=== PATIENT | female | born 1975 | race Caucasian/White ===

== ENCOUNTER 2024-01-07 09:35 | Emergency (ER) | payer OTHER, SELFPAY ==
[2024-01-07 09:48] VITALS: BP 120/81; PULSE 80; RESP 18; TEMP 36.4; O2SAT 99
--- NOTE | 2024-01-07 10:15 | ED.GENADULT ---
HPI - General Adult General Chief complaint: Upper Respiratory Infection Stated complaint: Sinus Problem Source: patient Mode of arrival: ambulatory Limitations: no limitations History of Present Illness HPI narrative: Patient presents for evaluation of sinus symptoms for last 10 days. Symptoms include sinus congestion and thick yellow drainage. She also reports a sensation in her ears that she is under water. No fever, chills, nausea, vomiting, diarrhea, cough, shortness of breath. No recent sick contacts to her knowledge. She has been taking Sudafed but symptoms persist. She does not smoke Related Data Allergies Allergy/AdvReac Type Severity Reaction Status Date / Time No Known Allergies Allergy Verified 01/07/24 09:49 Review of Systems Review of Systems: CONSTITUTIONAL: Denies fever, chills, or sweats. EYES: Denies visual changes, redness, or discharge. ENT: Reports sinus congestion, thick drainage, and sensation in her ears that she is under water. CARDIOVASCULAR: Denies chest pain, palpitations, or edema. RESPIRATORY: Denies cough or dyspnea. GASTROINTESTINAL: Denies abdominal pain, nausea, vomiting, or diarrhea. GENITOURINARY: Denies dysuria or hematuria. SKIN: Denies rash or itching. MUSCULOSKELETAL: Denies back pain, joint pain, or myalgia. NEUROLOGIC: Denies headache, numbness, dizziness, or weakness. PSYCHIATRIC: Denies anxiety or depression. [facility] Past Medical History Medical History No pertinent past medical history Surgical History Surgical History No pertinent past surgical history Family History Family History Mother Family history non-contributory Social History Social History Smoking status: Never smoker Substance use: never Additional occupation/education comments: teacher Gender identity (if verbalized by the patient): Female Spiritual care concerns: No Exam Narrative: GENERAL: Well-appearing, well-nourished, and in no acute distress. HEAD: Normocephalic, atraumatic. EYES: PERRLA and EOMI. ENT: Neck yellow drainage in the nares. There is bilateral maxillary sinus tenderness. Mucous membranes moist. Oropharynx without tonsillar hypertrophy exudate or other lesions. Bilateral TMs pearly byrnes nonbulging NECK: Supple. No adenopathy or masses. No carotid bruits or JVD CHEST: Clear to auscultation. No respiratory distress. No wheezes rales or rhonchi HEART: Regular rate and rhythm. No murmur heard. Normal peripheral pulses. ABDOMEN: Soft, nontender, nondistended, normal active bowel sounds. EXTREMITIES: Normal range of motion. No edema. SKIN: Warm, dry, no rash. NEURO: No focal deficits. Alert and oriented x3. PSYCH: Normal mood and affect. Course Course Emergency Course: This is a 48-year-old female who presented for evaluation of sinus symptoms. She meets criteria for bacterial sinusitis based upon the nature for discharge and duration of time in which she has been symptomatic. Will discharge with Augmentin. Increase hydration. Follow up with primary provider. Go to the ER for worsening symptoms. Patient in agreement with plan of care. Level of Care: Express Care Visit Vital Signs Vital signs: Vital Signs Temperature 36.4 C L 01/07/24 09:48 Pulse Rate 80 01/07/24 09:48 Respiratory Rate 18 01/07/24 09:48 Blood Pressure 120/81 01/07/24 09:48 Pulse Oximetry 99 01/07/24 09:48 Temperature 36.4 C L 01/07/24 09:48 Pulse Rate 80 01/07/24 09:48 Respiratory Rate 18 01/07/24 09:48 Blood Pressure 120/81 01/07/24 09:48 Pulse Oximetry 99 01/07/24 09:48 Medical Decision Making Vital Signs Vital Signs: Vital Signs Temperature 36.4 C L 01/07/24 09:48 Pulse Rate 80 01/07/24 09:48 Respiratory Rate 18 01/07/24 09:48 Blood Pressure 120/81 01/07/24 09:48 Pulse Oximetry 99 01/07/24 09:48 Temperature 36.4 C L 01/07/24 09:48 Pulse Rate 80 01/07/24 09:48 Respiratory Rate 18 01/07/24 09:48 Blood Pressure 120/81 01/07/24 09:48 Pulse Oximetry 99 01/07/24 09:48 Discharge Plan Discharge Clinical Impression: Sinusitis Patient Disposition: Home, Self-Care Condition: Stable Instructions: Antibiotic Form, Sinusitis (ED) Patient Language: Wolof Prescriptions: New amoxicillin-pot clavulanate 875-125 mg tablet 1 tablet PO Q12H Qty: 20 0RF Follow-up/Referrals: Declan Brewster MD [Physician] - Time of Disposition: 09:52
== END 2024-01-07 09:55 | disposition home or self-care (01) ==
PROVIDERS: Emergency Provider Nurse Practitioner
DX: J32.9 Chronic sinusitis, unspecified (principal)
CPT/HCPCS: 99213; G0463